=== PATIENT | female | born 1985 | race Hispanic/Latino ===

== ENCOUNTER 2018-05-18 14:35 | Inpatient (IN) | payer BC, MEDICAID ==
[~2018-05-18] VITALS: Ht 167.6 cm; Wt 134.3 kg
[2018-05-18] MEDS: AMPICILLIN 1GM+NS 50ML 50 ML IV SCH ×3 (03:45→23:40)
[2018-05-18] MEDS ORDERED: LACTATED RINGERS 1000ML 1,000 ML IV PRN (14:50)
[2018-05-18] MEDS ORDERED: DINOPROSTONE 10 MG VAGINAL SUPP VG SCH (15:00)
[2018-05-18] MEDS ORDERED: AMPICILLIN 2GM+NS 100ML 100 ML IV SCH (15:00)
[2018-05-18 15:26] LABS: HEMATOCRIT 39.5 % (36-48); MEAN CORPUSCULAR HEMOGLOBIN 28.1 pg (27.0-33.0); MEAN CORPUSCULAR HGB CONC 32.5 g/dL (32.0-36.0); MEAN CORPUSCULAR VOLUME 86.5 fL (79-99); PLATELET COUNT (AUTO) 139 K/uL (130-400); RED BLOOD CELL COUNT(AUTO) 4.57 MIL/uL (4.00-5.50); RED CELL DISTRIBUTION WIDTH 15.8 % (11.0-15.5); WHITE BLOOD COUNT (AUTO) 8.7 K/uL (4.8-10.8)
[2018-05-18 15:28] LABS: APPEARANCE,URINE Clear (CLEAR); BILIRUBIN,URINE Negative (NEGATIVE); COLOR,URINE Dark Yellow (YELLOW); GLUCOSE, URINE (UA) Negative (NEGATIVE); KETONES,URINE Negative (NEGATIVE); LEUKOCYTE ESTERASE ,URINE Negative (NEGATIVE); NITRATE,URINE Negative (NEGATIVE); OCCULT BLOOD,URINE Negative (NEGATIVE); PH,URINE 5.5 (5.0-8.0); PROTEIN,URINE POS 1+ (NEGATIVE); UROBILINOGEN,URINE 0.2 mg/dL (0.2-1.0)
[2018-05-18 15:37] LABS: CREATININE 0.8 mg/dL (0.5-1.5); POTASSIUM 3.9 mmol/L (3.5-5.1)
[2018-05-18 15:40] LABS: INR 0.91 (0.85-1.15); PARTIAL THROMBOPLASTIN TIME 29.2 SEC (26.3-35.5); PROTHROMBIN TIME 9.6 SEC (9.6-11.6)
[2018-05-18 15:41] LABS: ALBUMIN 2.4 g/dL (3.5-5.0); BILIRUBIN,TOTAL 0.1 mg/dL (0.2-1.0); TOTAL PROTEIN, SERUM 6.8 g/dL (6.0-8.3); URIC ACID 5.5 mg/dL (2.6-7.2)
[2018-05-18 15:42] LABS: BACTERIA,URINE Few /HPF (None Seen); MUCUS,URINE Few LPF (None Seen); SQUAMOUS EPITHELIAL CELL,UR Few /HPF (0-2)
[2018-05-19] MEDS ORDERED: ACETAMINOPHEN EXTRA STRENGTH 500 MG TABLET ONE (00:24)
[2018-05-19] MEDS ORDERED: ACETAMINOPHEN EXTRA STRENGTH 500 MG TABLET PO ONE (00:30)
[2018-05-19] MEDS ORDERED: PROMETHAZINE HCL 25 MG/ML 1ML AMPULE IM ONE (01:58)
[2018-05-19] MEDS ORDERED: MEPERIDINE-PF 50 MG/ML SYG ONE (01:58)
[2018-05-19] MEDS ORDERED: PROMETHAZINE HCL 25 MG/ML 1ML AMPULE IM SCH (02:00)
[2018-05-19] MEDS ORDERED: MEPERIDINE-PF 50 MG/ML SYG IVP ONE (02:00)
[2018-05-19] MEDS ORDERED: EPHEDRINE SULFATE 50 MG/ML AMPULE IVP PRN (05:15)
[2018-05-19] MEDS ORDERED: NALOXONE HCL 0.4 MG/1 ML ML IV PRN (05:15)
[2018-05-19] MEDS ORDERED: LACTATED RINGERS 500 ML 500 ML IV PRN (05:15)
[2018-05-19] MEDS ORDERED: ROPIVACAINE 0.2%200ML EPIDURAL 200 ML EP SCH (05:15)
[2018-05-19] MEDS ORDERED: OXYTOCIN 10 USP UNITS/ML ONE ×2 (05:24→09:03)
[2018-05-19] MEDS ORDERED: LACTATED RINGERS 1000ML 1,000 ML IV ONE ×2 (05:24→09:02)
[2018-05-19] MEDS ORDERED: OXYTOCIN 10 USP UNITS/ML 20 UNIT in LACTATED RINGERS 1000ML 1,000 ML IV SCH (05:45)
[2018-05-19] MEDS ORDERED: MEASLES/MUMPS/RUBELLA VACCINE, LIVE 0.5 ML/VIAL SQ PRN (08:45)
[2018-05-19] MEDS ORDERED: WITCH HAZEL 1 PAD TP PRN (08:45)
[2018-05-19] MEDS ORDERED: BENZOCAINE/LANOLIN/ALOE VERA 60 ML AEROSOL TP PRN (08:45)
[2018-05-19] MEDS ORDERED: OXYTOCIN-LR 20 UNITS/1000 ML 1,000 ML IV SCH (08:45)
[2018-05-19] MEDS ORDERED: ACETAMINOPHEN 325 MG TAB PO PRN (08:45)
[2018-05-19] MEDS ORDERED: LANOLIN 30GM OINTMENT TP PRN (08:45)
[2018-05-19] MEDS ORDERED: DIPH,PERTUSS(ACELL),TET VAC/PF 0.5 ML VIAL IM PRN (08:45)
[2018-05-19 09:24] VITALS: BP 146/86
[2018-05-19] MEDS: DOCUSATE SODIUM 100 MG CAP PO SCH ×2 (09:38→22:02)
[2018-05-19] MEDS: IBUPROFEN 600 MG TABLET PO PRN ×3 (09:38→23:13)
[2018-05-19 11:34] VITALS: BP 130/77
[2018-05-19 15:37] VITALS: BP 147/70
[2018-05-19 19:00] VITALS: BP 141/80
[2018-05-19 23:00] VITALS: BP 145/85
[2018-05-20 04:00] VITALS: BP 129/86
[2018-05-20 05:50] LABS: HEMATOCRIT 32.5 % (36-48); MEAN CORPUSCULAR HEMOGLOBIN 28.4 pg (27.0-33.0); MEAN CORPUSCULAR HGB CONC 32.9 g/dL (32.0-36.0); MEAN CORPUSCULAR VOLUME 86.4 fL (79-99); NUCLEATED RED BLOOD CELLS 0.1 % (0.0-0.19); PLATELET COUNT (AUTO) 111 K/uL (130-400); RED BLOOD CELL COUNT(AUTO) 3.76 MIL/uL (4.00-5.50); RED CELL DISTRIBUTION WIDTH 16.2 % (11.0-15.5); WHITE BLOOD COUNT (AUTO) 8.6 K/uL (4.8-10.8)
[2018-05-20 06:16] LABS: HEPATITIS Bs ANTIGEN SCREEN P Negative (Negative)
[2018-05-20] MEDS: AMPICILLIN 1GM+NS 50ML 50 ML IV SCH ×2 (07:00→11:00)
[2018-05-20 07:56] VITALS: BP 142/93
[2018-05-20] MEDS: DOCUSATE SODIUM 100 MG CAP PO SCH (09:26)
[2018-05-20] MEDS: IBUPROFEN 600 MG TABLET PO PRN (09:26)
[2018-05-20 11:39] VITALS: BP 133/89
== END 2018-05-20 12:25 | disposition home or self-care (01) | DRG 774 ==
LOC: LDH 14:35 → WSH 05-19 09:20
PROVIDERS: ADMIT Obstetrics & Gynecology; ATTEND Obstetrics & Gynecology
PROC: 10E0XZZ Delivery of Products of Conception, External Approach (ICD-10-PCS; principal; 2018-05-19)
PROC: 3E0P7VZ Introduction of Hormone into Female Reproductive, Via Natural or Artificial Opening (ICD-10-PCS; 2018-05-19)
PROC: 0HQ9XZZ Repair Perineum Skin, External Approach (ICD-10-PCS; 2018-05-19)
PROC: 3E0R3BZ Introduction of Anesthetic Agent into Spinal Canal, Percutaneous Approach (ICD-10-PCS; 2018-05-19)
PROC: 00HU33Z Insertion of Infusion Device into Spinal Canal, Percutaneous Approach (ICD-10-PCS; 2018-05-19)
PROC: 3E0234Z Introduction of Serum, Toxoid and Vaccine into Muscle, Percutaneous Approach (ICD-10-PCS; 2018-05-19)
DX: O99.824 Streptococcus B carrier state complicating childbirth (principal); O10.92 Unspecified pre-existing hypertension complicating childbirth; Z3A.39 39 weeks gestation of pregnancy; Z37.0 Single live birth; O70.0 First degree perineal laceration during delivery; Z23 Encounter for immunization; O99.02 Anemia complicating childbirth; D64.9 Anemia, unspecified
CPT/HCPCS: 36415; 80053; 81001; 82120; 84550; 85027; 85384; 85610; 85730; 86592; 86850; 86900; 86901; 87340; 90715; A4314; A4351; G0008; J0290; J2175; J2550; J2590; J7120; Q2038